=== PATIENT | female | born 1970 | race Caucasian/White ===

== ENCOUNTER → 2019-06-26 | Day surgery (SDC) | payer OTHER ==
--- NOTE | 2019-06-27 15:59 | PATH ---
Surgical Pathology Report Patient Name: MEGAN KELLY [facility]. Rec. #: [id number] /Age/Gender: 1970 (Age: 48) / F Account: [id number] Location: [facility] Taken: 06/26/2019 Received: 06/26/2019 Reported: 06/27/2019 Physicians: Thea French M.D. Andrew Ashikari, M.D. Specimen(s) Received A: RIGHT BREAST SPECIMEN SITE 1 - WITH CALCIFICATIONS B: RIGHT BREAST SPECIMEN SITE 1 - WITHOUT CALCIFICATIONS C: RIGHT BREAST SPECIMEN SITE 2 - WITH CALCIFICATIONS D: RIGHT BREAST SPECIMEN SITE 2 - WITHOUT CALCIFICATIONS E: LEFT BREAST SPECIMEN - WITH CALCIFICATIONS F: LEFT BREAST SPECIMEN - WITHOUT CALCIFICATIONS Clinical History Nonpalpable lesion Mammographic findings: Microcalcification, suspicious Final Diagnosis A. 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 B. 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 C. 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 D. BREAST, RIGHT, SITE 2, WITHOUT CALCIFICATIONS, STEREOTACTIC CORE BIOPSY: DUCTAL CARCINOMA IN SITU (DCIS), HIGH NUCLEAR GRADE, SOLID AND CRIBRIFORM TYPES, WITH MODERATE NECROSIS, AND ASSOCIATED MICROCALCIFICATIONS. E. BREAST, LEFT, WITH CALCIFICATIONS, STEREOTACTIC CORE BIOPSY: DUCTAL CARCINOMA IN SITU (DCIS), LOW TO INTERMEDIATE NUCLEAR GRADE, SOLID AND CRIBRIFORM TYPES INVOLVING A SCLEROSED PAPILLOMA WITH ASSOCIATED MICROCALCIFICATIONS. F. BREAST, LEFT, WITHOUT CALCIFICATIONS, STEREOTACTIC CORE BIOPSY: FOCAL DUCTAL CARCINOMA IN SITU (DCIS), SOLID AND CRIBRIFORM TYPE, LOW TO INTERMEDIATE NUCLEAR GRADE. Comment: ER/DC are pending, findings will be reported separately. Electronically Signed Tatiana Sánchez M.D. Addendum Reported: 07/01/2019 Addendum Diagnosis Right breast Results of Estrogen Receptor (ER) and Progesterone Receptor (DC) studies performed on block "C1" at [facility] are as follows: ER (clone [id number] mouse monoclonal antibody by [employer]): >95% nuclear staining with strong intensity (Positive). DC (clone16 mouse monoclonal antibody by [employer]): >95% nuclear staining with strong intensity (Positive). Left Breast Results of Estrogen Receptor (ER) and Progesterone Receptor (DC) studies performed on block "E1" at [place], [place] ([id number]) are as follows: ER (clone 6F11 mouse monoclonal antibody by [employer]): >95% nuclear staining with strong intensity (Positive). DC (clone16 mouse monoclonal antibody by [employer]): ~70% nuclear staining with moderate to strong intensity (Positive). Positive and negative controls (internal if applicable) show appropriate results. Formalin fixation and cold ischemic times are within current ASCO/CAP recommendations for ER, DC and Her2 testing. Case discussed with Dr. Shipman, 07/01/19. Tatiana Sánchez M.D. Gross Description A. Received in formalin labeled "right breast site 1 with calcifications," are 8 wallace-yellow, cylindrical portions of fibroadipose tissue ranging from 1.0-4.0 cm in length and averaging 0.3 cm in diameter. The specimens are entirely submitted in 2 cassettes. B. Received in formalin labeled "right breast site 1 without calcifications," are 2 wallace-yellow, cylindrical portions of fibroadipose tissue measuring 0.8 and 3.2 cm in length and averaging 0.3 cm in diameter. The specimens are submitted in toto in one cassette. C. Received in formalin labeled "right breast site 2 with calcifications," are 5 wallace-yellow, cylindrical portions of fibroadipose tissue ranging from 0.8-2.4 cm in length and averaging 0.3 cm in diameter. The specimens are submitted in toto in one cassette. D. Received in formalin labeled "right breast site 2 without calcifications," are 3 wallace-yellow, cylindrical portions of fibroadipose tissue ranging from 1.7-4.4 cm in length and averaging 0.3 cm in diameter. The specimens are submitted in toto in one cassette. E. Received in formalin labeled "left breast with calcifications," are 5 wallace-yellow, cylindrical portions of fibroadipose tissue ranging from 0.7-4.3 cm in length and averaging 0.3 cm in diameter. The specimens are submitted in toto in 2 cassettes. F. Received in formalin labeled "left breast without calcifications," is a 3.3 x 3.0 x 0.3 cm aggregate of multiple wallace-yellow, irregular to cylindrical portions of fibroadipose tissue. The formalin is filtered and the specimen is entirely submitted in 2 cassettes. Time to formalin fixation: 5 minutes Total formalin fixation time: Approximately 6 hours. 06/27/2019 [email or web address]/27/2019
== END | disposition home or self-care (01) ==
LOC: FMAMMOTONE 12:37
PROVIDERS: ATTEND Internal Medicine
PROC: 0HBV3ZX Excision of Bilateral Breast, Percutaneous Approach, Diagnostic (ICD-10-PCS; principal; 2019-06-26)
DX: D05.11 Intraductal carcinoma in situ of right breast (principal); D05.12 Intraductal carcinoma in situ of left breast; N64.89 Other specified disorders of breast; D24.2 Benign neoplasm of left breast; R92.1 Mammographic calcification found on diagnostic imaging of breast
CPT/HCPCS: 19081; 19082; 76098-TC-FY; 87899; 88305-TC; 88342-TC; A4648

== ENCOUNTER 2024-04-23 05:36 | Day surgery (SDC) | payer OTHER ==
[2024-04-18 15:16] VITALS: BMI 37.7
[2024-04-23] MEDS: EPINEPHrine/PF 1 MG/1 ML (1:1,000) AMPULE IO ONE
[~2024-04-23 05:36] MED LIST: ACETAMINOPHEN 325 MG TABLET (FP) PO PRN
[2024-04-23] MEDS ORDERED: LIDOCAINE HCL/PF 2% SDV 5ML VIAL ONE (07:26)
[2024-04-23] MEDS ORDERED: POVIDONE-IODINE 5% OPHTHALMIC PREP 30 ML SOLUTION ONE (07:26)
[2024-04-23] MEDS ORDERED: LIDOCAINE HCL/PF 1% SDV 5ML VIAL ONE (07:26)
[2024-04-23] MEDS ORDERED: BSS (NA/CA/MG/K) BALANCED SALT SOLUTION OPHTH SOLN 15 ML BOTTLE ONE (07:26)
[2024-04-23] MEDS ORDERED: BUPIVACAINE HCL/PF 0.75% 10 ML VIAL ONE (07:26)
[2024-04-23] MEDS ORDERED: OFLOXACIN 0.3% OPHTHALMIC SOLUTION 5 ML BOTTLE ONE (09:34)
[2024-04-23] MEDS ORDERED: CYCLOPENTOLATE HCL 1% OPHTH SOLN 2 ML BOTTLE ONE (09:34)
[2024-04-23] MEDS ORDERED: PHENYLEPHRINE 2.5% OPTHALMIC DROP 2ML BOTTLE ONE (09:34)
[2024-04-23] MEDS ORDERED: TROPICAMIDE 1% OPHTH SOLN 15 ML BOTTLE ONE (09:34)
[2024-04-23] MEDS ORDERED: KETOROLAC TROMETHAMINE 0.5% EYE DROP 1 DROP DROPS ONE (09:34)
[2024-04-23] MEDS: CYCLOPENTOLATE HCL 1% OPHTH SOLN 2 ML BOTTLE OP SCH (09:48)
[2024-04-23] MEDS: TROPICAMIDE 1% OPHTH SOLN 15 ML BOTTLE OP SCH (09:48)
[2024-04-23] MEDS: OFLOXACIN 0.3% OPHTHALMIC SOLUTION 5 ML BOTTLE OP SCH (09:48)
[2024-04-23] MEDS: PHENYLEPHRINE 2.5% OPHTH SOLN 15 ML BOTTLE OP SCH (09:49)
[2024-04-23] MEDS: KETOROLAC TROMETHAMINE 0.5% EYE DROP 1 DROP DROPS OP SCH (09:49)
[2024-04-23] MEDS ORDERED: PROPOFOL 20 ML ONE (11:17)
[2024-04-23] MEDS: LIDOCAINE HCL/PF 2% SDV 5ML VIAL INF ONE ×2 (11:40)
[2024-04-23] MEDS: BUPIVACAINE HCL/PF 0.75% 10 ML VIAL NR ONE ×2 (11:40)
[2024-04-23] MEDS: POVIDONE-IODINE 5% OPHTHALMIC PREP 30 ML SOLUTION OS ONE ×2 (11:45)
[2024-04-23] MEDS: LIDOCAINE HCL 1% PRESERVATIVE FREE - 30ML VIAL IO ONE ×2 (11:48)
[2024-04-23] MEDS: BSS (NA/CA/MG/K) BALANCED SALT SOLUTION OPHTH SOLN 15 ML BOTTLE OS ONE ×3 (11:50)
[2024-04-23] MEDS: CHONDROITIN SU A/HYALUR SOD 1 KIT IO ONE ×3 (11:52)
[2024-04-23] MEDS: EPINEPHrine 1:1,000 1,000 MCG/ML ML SQ ONE ×2 (12:06)
[2024-04-23 13:13] VITALS: BP 125/72; PULSE 80; RESP 20; TEMP 97.4
== END 2024-04-23 12:48 | disposition home or self-care (01) ==
LOC: JASU-SURG 05:36
PROVIDERS: ATTEND Ophthalmology
PROC: 08RK3JZ Replacement of Left Lens with Synthetic Substitute, Percutaneous Approach (ICD-10-PCS; principal; 2024-04-23 11:00)
DX: H26.9 Unspecified cataract (principal)
CPT/HCPCS: V2632